=== PATIENT | male | born 1960 | race Caucasian/White ===

== ENCOUNTER 2020-12-11 05:57 | Day surgery (SDC) | payer OTHER ==
[~2020-12-11] VITALS: Ht 182.9 cm; Wt 93.9 kg
--- NOTE | ~2020-12-11 | OP ---
PATIENT NAME: GEMINI LARKIN MEDICAL RECORD: [id number] :62 LOCATION:D.OPS ADMISSION DATE: SURGEON: MARCOS NOVOA MD DATE OF OPERATION: 12/11/2020 PREOPERATIVE DIAGNOSES: 1. Right inguinal hernia. 2. Ventral hernia. 3. Hypertension. POSTOPERATIVE DIAGNOSES: 1. Right inguinal hernia. 2. Ventral hernia. 3. Hypertension. PROCEDURES: 1. Right inguinal hernia repair with medium PHS mesh. 2. Ventral hernia repair without mesh. SURGEON: Marcos Novoa MD REPORT OF PROCEDURE: The patient's abdomen was prepped and draped in sterile fashion. An oblique incision was made just above the inguinal ligament. Electrocautery was used to dissect through the subcutaneous tissues to the external oblique fascia. This fascia was opened up to the external ring using electrocautery. The ilioinguinal nerve was found and high ligated. The spermatic cord was then elevated and a John was placed around it. The patient had a direct hernia defect. We were able to free this up from the spermatic cord and pushed back into the abdominal cavity. We opened up the preperitoneal space of Retzius and opened up this space in all directions with blunt dissection. A medium PHS mesh was inserted and then sutured down on all 4 sides using multiple interrupted 0 Vicryls. The external oblique fascia was closed with running 2-0 Vicryl. Chris's was closed with interrupted 3-0 Vicryl and the skin was closed with running subcutaneous 5-0 Monocryl. A skin incision was then made in a semicircular fashion on the inferior aspect of the umbilicus. Electrocautery was used to dissect through the subcutaneous tissues and we eventually elevated the umbilicus and transected the umbilical stalk. The patient had a fat-containing hernia defect present. Once this defect was visualized, I could see that the opening was around a cm in greatest diameter. We were able to push the fatty contents back into the abdominal cavity. After we cleaned the edges of the fascia then this was reapproximated transversely using multiple interrupted 0 Prolenes. The umbilicus was tacked down with a single interrupted 3-0 Vicryl and the subcutaneous tissues were reapproximated with interrupted 3-0 Vicryl. The skin incision was then closed with running subcutaneous 5-0 Monocryl. A total of 20 mL of 0.25% Marcaine with epinephrine was infused into the surrounding tissues of the 2 wounds and the wounds were dressed appropriately. COMPLICATIONS: None. CONDITION: Stable. ANESTHESIA: General endotracheal and local. BLOOD LOSS: Minimal. OPERATIVE REPORT [id number] GEMINI LARKIN TRANSINT:[id number] Voice Confirmation ID: [id number] DOCUMENT ID: [id number] MARCOS NOVOA MD CC: CAROL SCOTT MD [id number] DICTATION DATE: 12/11/20926 GARAGE DOOR TECHNICIAN: 12/11/20945 [id number] [place] [address]
[~2020-12-11 05:57] MED LIST: ASPIRIN325 MG PO; BAYER CHEWABLE81 MG PO; COZAAR50 MG PO; FISH OIL 1,0001 CA1 PO; FLOMAX0.4 MG PO; LIPITOR20 MG PO; NITROSTAT0.4 MG OR; PROTONIX40 MG PO
[2020-12-11 06:24] LABS: BASOPHILS 0.5 % (0-2); EOSINOPHILS 2.8 % (0-7); HEMATOCRIT 43.2 % (42.0-54.0); HEMOGLOBIN 14.5 g/dL (13.5-17.5); IMMATURE GRANULOCYTES 0.1 % (0-5); LYMPHOCYTE ABS# 2.73 10x3/uL (1.32-3.57); LYMPHOCYTES 34.6 % (15-50); MCH 29.7 pg (26.0-34.0); MCHC 33.6 g/dL (31.0-37.0); MCV 88.5 fL (80.0-100.0); MEAN PLATELET VOLUME 9.3 fL (7.4-10.4); NEUTROPHIL ABS# 4.02 10x3/uL (1.78-5.38); PLATELET COUNT 298 10x3/uL (130-400); RBC 4.88 10x6/uL (4.20-6.10); RDW 12.8 % (11.5-14.5); WBC 7.9 10x3/uL (4.8-10.8)
[2020-12-11 06:43] LABS: CALC OSMOLALITY 278 mosm/kg (275-300); CALCIUM 8.8 mg/dL (8.5-10.1); CARBON DIOXIDE 28.4 mmol/L (21.0-32.0); CHLORIDE - SERUM 103 mmol/L (98-107); CREATININE - SERUM 0.9 mg/dL (0.6-1.3); GLUCOSE 111 mg/dL (74-106); POTASSIUM - SERUM 4.1 mmol/L (3.5-5.1); SODIUM 138 mmol/L (136-145); UREA NITROGEN 19 mg/dL (7-18); eGFR NON AFRICAN AMERICAN > 90 mL/min (90-120)
[2020-12-11 07:18] VITALS: BP 141/75; Ht 182.9 cm; Wt 93.9 kg
[2020-12-11] MEDS ORDERED: HYDROCODON-ACE1 EA10 PO (09:19)
--- NOTE | 2020-12-11 15:21 | NUR ---
IV D/C'D WITH CANNULA INTACT, PRESSURE HELD AND DRSG PLACED. DISCHARGE INSTRUCTIONS GIVEN AND PT VERBALIZED AN UNDERSTANDING. PT AMBULATED TO BR AND VOIDED WITHOUT DIFFICULTY. ABD SOFT.DRSG CDI
== END 2020-12-11 11:40 | disposition home or self-care (01) ==
LOC: D.OPS 05:57
PROVIDERS: ATTEND Surgery
DX: K40.90 Unilateral inguinal hernia, without obstruction or gangrene, not specified as recurrent (principal); K43.9 Ventral hernia without obstruction or gangrene; I10 Essential (primary) hypertension

== ENCOUNTER → 2021-01-20 12:21 | Outpatient (CLI) | payer OTHER ==
[2020-12-11 07:18] VITALS: BMI 28.1
[~2021-01-20 12:21] MED LIST changes: +HYDROCODON-ACE1 EA10 PO
== END | disposition home or self-care (01) ==
LOC: D.HCCARDIO 12:21
PROVIDERS: ATTEND Internal Medicine Cardiovascular Disease
DX: R06.00 Dyspnea, unspecified (principal)